=== PATIENT | female | born 1995 | race Two or more races ===

== ENCOUNTER 2025-01-23 21:10 | Emergency (ER) | payer OTHER ==
[~2025-01-23] VITALS: Ht 157.5 cm; Wt 64.4 kg
[2025-01-23 21:21] VITALS: TEMP 99
[2025-01-23 22:16] LABS: PLATELET COUNT (AUTO) 222 K/uL (150-450); RED BLOOD CELL COUNT(AUTO) 4.54 MIL/uL (4.0-5.2); RED CELL DISTRIBUTION WIDTH 16.4 % (11.5-15.0); WHITE BLOOD COUNT (AUTO) 5.8 K/uL (4.3-11.0)
[2025-01-23 22:22] LABS: APPEARANCE,URINE CLEAR (CLEAR); BLOOD, URINE 3+ Ery/uL (NEGATIVE); LEUKOCYTE ESTERASE ,URINE TRACE (NEGATIVE); NITRITE, URINE NEGATIVE (NEGATIVE); UGLUCOSE NEGATIVE (NEGATIVE)
[2025-01-23 22:26] LABS: CALCIUM, SERUM 9.2 mg/dL (8.5-10.1); CREATININE 0.8 mg/dL (0.6-1.3); SODIUM SERUM 138.0 mmol/L (136-145); UREA NITROGEN, BLOOD 13.0 mg/dL (7-18)
[2025-01-23 22:36] LABS: PREGNANCY TEST URINE QUAL POSITIVE (NEGATIVE)
[2025-01-23 22:51] LABS: ADD URINE CULTURE NO; SQUAMOUS EPITHELIAL CELL,UR Moderate /HPF (None Seen)
[2025-01-23 23:06] LABS: PREGNANCY TEST SERUM QUAN 29466.0 mIU/mL (0-6)
[2025-01-24] MEDS ORDERED: CEFP200T14 PO (01:20)
[2025-01-24 01:49] VITALS: BP 127/77; O2SAT 98
== END 2025-01-24 01:49 | disposition home or self-care (01) ==
LOC: ER 21:13
DX: O46.8X1 Other antepartum hemorrhage, first trimester (principal); R10.2 Pelvic and perineal pain; Z3A.01 Less than 8 weeks gestation of pregnancy
CPT/HCPCS: 36415; 76856-TC; 80048-TC; 81001; 84702-TC; 84703-TC; 85025-TC